=== PATIENT | male | born 1990 | race American Indian/Alaskan Native ===

== ENCOUNTER 2020-03-20 09:03 | Emergency (ER) | payer OTHER ==
[2020-03-20] MEDS ORDERED: BUTALB/ACETAMINOPHEN/CAFFEINE TAB PO ONE (11:51)
[2020-03-20] MEDS ORDERED: CYCLOBENZAPRINE 10 MG TAB PO ONE (11:51)
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
[2020-03-20 13:33] VITALS: BP 111/64
== END 2020-03-20 13:52 | disposition home or self-care (01) ==
LOC: ED 09:03
DX: S76.011A Strain of muscle, fascia and tendon of right hip, initial encounter (principal); S63.501A Unspecified sprain of right wrist, initial encounter; S00.83XA Contusion of other part of head, initial encounter; S80.211A Abrasion, right knee, initial encounter; V49.49XA Driver injured in collision with other motor vehicles in traffic accident, initial encounter; Y93.89 Activity, other specified; Y92.488 Other paved roadways as the place of occurrence of the external cause; Y99.8 Other external cause status; Z90.49 Acquired absence of other specified parts of digestive tract; Z79.899 Other long term (current) drug therapy
CPT/HCPCS: 70450; 70486